=== PATIENT | female | born 1975 | race Caucasian/White ===

== ENCOUNTER 2020-11-13 20:43 | Emergency (ER) | payer OTHER ==
[~2020-11-13] VITALS: Ht 160 cm; Wt 83.9 kg
[2020-11-13] MEDS ORDERED: IBUPROFEN 600 MG TAB PO STA (21:48)
[2020-11-13] MEDS ORDERED: AMOXICILLIN/CLAVULANATE K 875 MG TAB PO STA (21:48)
[2020-11-13] MEDS ORDERED: PENICILLIN V P500 MG PO (21:52)
[2020-11-13] MEDS ORDERED: HYDROCODON-ACE1 EA12 PO ×2 (21:53→21:55)
[2020-11-13] MEDS ORDERED: IBUPROFEN600 MG PO (21:55)
[2020-11-13] MEDS ORDERED: IBUPROFEN 400 MG TAB ONE (21:59)
[2020-11-14] MEDS ORDERED: HYDROCODON-ACE1 EA12 PO (06:39)
== END 2020-11-13 22:59 | disposition home or self-care (01) ==
LOC: FSED 21:32
DX: K08.89 Other specified disorders of teeth and supporting structures (principal); K04.7 Periapical abscess without sinus
CPT/HCPCS: 99282

== ENCOUNTER 2022-01-24 06:27 | Emergency (ER) | payer OTHER ==
[~2022-01-24] VITALS: Ht 157.5 cm; Wt 98.0 kg
[~2022-01-24 06:27] MED LIST: HYDROCODON-ACE1 EA12 PO; IBUPROFEN600 MG PO; PENICILLIN V P500 MG PO
[2022-01-24] MEDS ORDERED: KETOROLAC TROMETHAMINE 30 MG/ML VIAL IV STA (08:34)
[2022-01-24] MEDS ORDERED: IOPAMIDOL 370 MG/ML 100 ML INFUS..BTL INJ ONE (08:55)
[2022-01-24] MEDS ORDERED: KETOROLAC TROME10 MG PO (10:43)
== END 2022-01-24 10:49 | disposition home or self-care (01) ==
LOC: FSED 07:18
DX: R07.89 Other chest pain (principal); S22.42XD Multiple fractures of ribs, left side, subsequent encounter for fracture with routine healing; J90 Pleural effusion, not elsewhere classified; W11.XXXD Fall on and from ladder, subsequent encounter; R94.31 Abnormal electrocardiogram [ECG] [EKG]
CPT/HCPCS: 71046; 71260; 93005; 96374; 99284; J1885; Q9967

== ENCOUNTER 2022-05-18 21:32 | Emergency (ER) | payer OTHER ==
[~2022-05-18] VITALS: Ht 157.5 cm; Wt 74.8 kg
[~2022-05-18 21:32] MED LIST changes: +KETOROLAC TROME10 MG PO
[2022-05-18 22:00] VITALS: BP 109/70
[2022-05-18] MEDS ORDERED: SODIUM CHLORIDE 0.9% 1000ML 1,000 ML ONE ×2 (22:50→23:40)
[2022-05-18] MEDS ORDERED: ONDANSETRON HCL INJ 2MG/ML 2ML 2 MG/ML VIAL ONE (22:50)
[2022-05-18] MEDS ORDERED: FAMOTIDINE 20 MG/2 ML VIAL IV ONE (22:51)
[2022-05-18] MEDS ORDERED: SODIUM CHLORIDE 0.9% 1000ML 1,000 ML IV SCH ×2 (23:00)
[2022-05-18] MEDS ORDERED: FAMOTIDINE 20 MG/2 ML VIAL IV STA (23:00)
[2022-05-18] MEDS ORDERED: POTASSIUM CHLORIDE 20 MEQ TAB CR PO STA (23:02)
[2022-05-18] MEDS ORDERED: CEFTRIAXONE 1 GM VIAL ONE (23:28)
[2022-05-18] MEDS ORDERED: POTASSIUM CHLORIDE 20 MEQ TAB CR PO ONE (23:33)
[2022-05-19] MEDS ORDERED: POTASSIUM CHLO10 ME1 PO (00:12)
[2022-05-19] MEDS ORDERED: FAMOTIDINE20 MG PO (00:12)
[2022-05-19] MEDS ORDERED: ONDANSETRON ODT4 MG PO (00:13)
[2022-05-19] MEDS ORDERED: CEFUROXIME500 MG PO (01:54)
== END 2022-05-19 00:28 | disposition home or self-care (01) ==
LOC: FSED 21:47
DX: R11.2 Nausea with vomiting, unspecified (principal); T50.995A Adverse effect of other drugs, medicaments and biological substances, initial encounter; N39.0 Urinary tract infection, site not specified; E87.6 Hypokalemia; R63.0 Anorexia
CPT/HCPCS: 74021; 80048; 80076; 81003; 85025; 99284; J0696; J2405; J7030

== ENCOUNTER 2023-02-11 09:26 | Emergency (ER) | payer OTHER ==
[~2023-02-11] VITALS: Ht 157.5 cm; Wt 69.4 kg
[~2023-02-11 09:26] MED LIST changes: +CEFUROXIME500 MG PO; +FAMOTIDINE20 MG PO; +ONDANSETRON ODT4 MG PO; +POTASSIUM CHLO10 ME1 PO
[2023-02-11 09:34] VITALS: O2SAT 100
[2023-02-11] MEDS ORDERED: PREDNISONE20 MG PO (09:46)
[2023-02-11] MEDS ORDERED: HYDROXYZINE HCL25 MG PO (09:46)
[2023-02-11] MEDS ORDERED: PEPCID20 MG PO (09:46)
[2023-02-11] MEDS ORDERED: CLEOCIN HCL300 MG PO (09:46)
== END 2023-02-11 10:05 | disposition home or self-care (01) ==
LOC: FSED 09:32
DX: L03.115 Cellulitis of right lower limb (principal); L29.9 Pruritus, unspecified
CPT/HCPCS: 99283